=== PATIENT | female | born 1990 | race Caucasian/White ===

== ENCOUNTER → 2016-10-23 | Outpatient (CLI) | payer BC, OTHER ==
[~2016-10-23] MED LIST: COLACE-DPS100 MG PO; DERMOPLAST SPRA56 GM PR; IRON325 M1 PO; MOTRIN-DPS800 MG PO; NIPPLECREAM TP; PRENATAL VIT1 TAB PO; TYLENOL #3 DPS1 TAB PO; TYLENOL EXTRA500 M1 PO
== END | disposition home or self-care (01) ==
LOC: EDT 13:00
DX: O24.419 Gestational diabetes mellitus in pregnancy, unspecified control (principal)

== ENCOUNTER → 2016-11-12 | Outpatient (CLI) | payer BC, OTHER | END | disposition home or self-care (01) | LOC: NUE 13:00 | DX: O24.419 Gestational diabetes mellitus in pregnancy, unspecified control (principal); Z71.3 Dietary counseling and surveillance | CPT/HCPCS: 258 ==

== ENCOUNTER 2016-12-13 10:40 | Outpatient (CLI) | payer BC, OTHER ==
[~2016-12-13 10:40] MED LIST changes: -DERMOPLAST SPRA56 GM PR; -TYLENOL EXTRA500 M1 PO
[2016-12-22] MEDS ORDERED: TYLENOL EXTRA500 M1 PO (11:41)
[2016-12-22] MEDS ORDERED: DERMOPLAST SPRA56 GM PR (11:41)
== END 2016-12-13 12:00 | disposition home or self-care (01) ==
LOC: BC 10:40 → 2LDRP 10:40 → BC 12:00
DX: O47.1 False labor at or after 37 completed weeks of gestation (principal); Z3A.39 39 weeks gestation of pregnancy

== ENCOUNTER 2016-12-20 04:45 | Inpatient (IN) | payer BC, OTHER ==
[~2016-12-20] VITALS: Ht 157.5 cm; Wt 63.5 kg
--- NOTE | ~2016-12-20 | HP ---
ADMIT: 12/20/2016 RM/LOC: 220 [facility] MR#: [id number] [address] [facility] [address] [place] [id number] JULIUS FRANK [address] [place] [address] History and Physical SEX: F AGE: 26 : 1990 DATE OF SERVICE: REASON FOR ADMISSION: Induction of labor. HISTORY OF PRESENT ILLNESS: The patient is a 26-year-old, 3, para 1-0- 1-1, who presented to Labor and Delivery at 39-0/7th weeks' gestation for scheduled induction of labor secondary to gestational diabetes. The patient's has been complicated by gestational diabetes, which has been well controlled with diet, it has also been complicated by anemia. At the time of admission, the patient noted occasional contractions. She denied any vaginal bleeding or loss of fluid. LABORATORY DATA: Blood type O positive, antibody screen negative. HIV negative. Normal quad screen. Elevated 1-hour glucose tolerance test and elevated 3-hour glucose tolerance test. Group B strep is negative. PAST MEDICAL HISTORY: Anal fissure, ulcer, and insomnia. PAST SURGICAL HISTORY: Tonsillectomy, sinus surgery, adenoidectomy, and cholecystectomy. CURRENT MEDICATIONS: 1. vitamins daily. 2. Feosol 325 mg daily. ALLERGIES: NO KNOWN MEDICAL ALLERGIES. SOCIAL HISTORY: The patient is . She denies any alcohol, tobacco, or drug use. FAMILY HISTORY: Mother with Crohn disease. PHYSICAL EXAMINATION: VITAL SIGNS: Stable. The patient is afebrile. GENERAL: The patient is alert and oriented, in no acute distress. HEART: Regular rate and rhythm without murmurs, gallops, or rubs. LUNGS: Clear to auscultation bilaterally. ABDOMEN: Soft, nontender, gravid. ADMIT: 12/20/2016 RM/LOC: 220 [facility] MR#: [id number] [address] [id number] JULIUS FRANK [address] [place] [address] History and Physical SEX: F AGE: 26 : 1990 EXTREMITIES: No edema. No calf tenderness. heart tones are in the 120s with moderate variability and accelerations present. Contractions are irregular on admission. Cervix 4 cm dilated, 70% effaced, and -2 station. ASSESSMENT AND PLAN: 1. A 26-year-old, 3, para 1-0-1-1, at 39-0/7th weeks' gestation. 2. Gestational diabetes type A1. The patient's blood sugars have been well controlled in the . Plan to induce labor with Pitocin due to gestational diabetes. 3. Anemia in . May Saunders MD/ danielle JOB #: [id number] CC: May Saunders, Attending Physician May Saunders, Family Physician
--- NOTE | ~2016-12-20 | OR ---
ADMIT: 12/20/2016 RM/LOC: 220 [facility] MR#: [id number] [address] [address] [address]UL[address]US [address] [place] [address] Operative/Delivery Room Report SEX: F AGE: 26 : 1990 SURGERY DATE: 12/20/2016 SURGEON: May Saunders MD NAME OF PROCEDURE: Removal of epidural catheter. INDICATIONS: The patient is a 26-year-old 3 para 1-0-1-1, who presented to Labor and Delivery for scheduled induction of labor due to gestational diabetes type A1. The patient received an epidural for pain control during labor. DESCRIPTION OF PROCEDURE: Following delivery, the patient was placed in the sitting position and the patient's epidural catheter was removed without difficulty, and the tip was noted to be intact. The patient tolerated the procedure well. May Saunders MD/ danielle JOB #: [id number] CC: May Saunders, Attending Physician May Saunders, Family Physician
--- NOTE | ~2016-12-20 | FD ---
ADMIT: 12/20/2016 RM/LOC: 220 [facility] MR#: [id number] [address] [address] JULIUS FRANK [address] [place] [address] Final Diagnosis SEX: F AGE: 26 : 1990 ADMISSION DATE: 12/20/2016 DISCHARGE DATE: 12/21/2016 FINAL DIAGNOSIS: 1. Intrauterine at term. 2. Gestational diabetes, A1. PROCEDURE: Spontaneous vaginal delivery. May Saunders MD/ stephanie JOB #: [id number] CC: May Saunders MD, Attending Physician May Saunders MD, Family Physician
[2016-12-22] MEDS ORDERED: TYLENOL EXTRA500 M1 PO (11:41)
[2016-12-22] MEDS ORDERED: DERMOPLAST SPRA56 GM PR (11:41)
--- NOTE | 2017-01-13 08:55 | OR ---
ADMIT: 12/20/2016 RM/LOC: 220 [facility] MR#: [id number] [address] [place] [id number] [address] [place] [address] Operative/Delivery Room Report SEX: F AGE: 26 : 1990 SURGERY DATE: 12/20/2016 SURGEON: May Saunders MD NAME OF PROCEDURE: Spontaneous vaginal delivery. PREOPERATIVE DIAGNOSES: 1. Intrauterine at 39-0/7th weeks' gestation. 2. Gestational diabetes type A1. POSTOPERATIVE DIAGNOSES: 1. Intrauterine at 39-0/7th weeks' gestation. 2. Gestational diabetes type A1. FINDINGS: Liveborn male infant, scores 8 at 1 minute and 9 at 5 minutes, weight 7 pounds 11 ounces. ESTIMATED BLOOD LOSS: 150 mL. ANESTHESIA: Epidural. COMPLICATIONS: None. INDICATIONS FOR PROCEDURE: The patient is a 26-year-old 3 para 1-0-1- 1, who presented to Labor and Delivery at 39-0/7th weeks' gestation for scheduled induction of labor at term secondary to gestational diabetes type A1. The patient's blood sugars have been controlled with diet. The patient had Pitocin induction of labor. She progressed through labor to completely dilated and pushed, bringing the 's vertex to the perineum. DESCRIPTION OF PROCEDURE: The patient was noted to be complete and pushing ADMIT: 12/20/2016 RM/LOC: 220 [facility] MR#: [id number] [address] [place] [id number] [address] FRANK [place], [place] [id number] Operative/Delivery Room Report SEX: F AGE: 26 : 1990 with the 's vertex at the perineum. The patient pushed and the 's vertex delivered in the ROBERT position over midline. She continued to push. The anterior shoulder delivered, the posterior shoulder followed, and the remainder of the infant delivered without difficulty as well. The was dried and handed off to the mother's abdomen. Twenty units of Pitocin were placed in IV bag to firm the uterus. The cord was clamped and cut. The placenta then delivered intact spontaneously. The cervix was examined and was noted to be free of lacerations. The vaginal vault and perineum were examined, there was noted to be a small second-degree midline laceration which was repaired in the usual fashion using 2-0 Vicryl. The patient tolerated the procedure well. All sponge and needle counts were correct. The patient and her recovered in the room in stable condition. May Saunders MD/ danielle JOB #: [id number] CC: May Saunders, Attending Physician May Saunders, Family Physician
== END 2016-12-21 14:00 | disposition home or self-care (01) | DRG 775 ==
LOC: 2LDRP 04:45 → BC 04:45 → 2LDRP 04:54 → BC 12-27 08:00
PROVIDERS: ADMIT Obstetrics & Gynecology
PROC: 3E033VJ Introduction of Other Hormone into Peripheral Vein, Percutaneous Approach (ICD-10-PCS; principal; 2016-12-20)
PROC: 0KQM0ZZ Repair Perineum Muscle, Open Approach (ICD-10-PCS; principal; 2016-12-20)
PROC: 10E0XZZ Delivery of Products of Conception, External Approach (ICD-10-PCS; principal; 2016-12-20)
PROC: 10907ZC Drainage of Amniotic Fluid, Therapeutic from Products of Conception, Via Natural or Artificial Opening (ICD-10-PCS; principal; 2016-12-20)
DX: O24.420 Gestational diabetes mellitus in childbirth, diet controlled (principal); D64.9 Anemia, unspecified; O70.1 Second degree perineal laceration during delivery; O99.02 Anemia complicating childbirth; Z3A.39 39 weeks gestation of pregnancy; Z37.0 Single live birth